=== PATIENT | male | born 1960 | race Caucasian/White ===

== ENCOUNTER 2017-06-07 20:30 | Emergency (ER) | payer OTHER ==
[~2017-06-07] VITALS: Ht 170.2 cm; Wt 79.0 kg
[2017-06-07 20:39] VITALS: Ht 170.2 cm; Wt 79.0 kg
[2017-06-07] MEDS ORDERED: DIPHTH/TET/ACEL PERTUSS (ADULT) 0.5 ML VIAL IM* ONE (23:00)
[2017-06-07] MEDS ORDERED: LIDOCAINE 1% (MDV) 20 ML INJ SC ONE (23:00)
[2017-06-07] MEDS ORDERED: IBUP-1542 PO (23:17)
[2017-06-07] MEDS ORDERED: CEPH-443 PO (23:17)
--- NOTE | 2017-06-07 23:25 | ERD ---
ER Documentation Chief Complaint Date/Time DATE: 06/07/17 TIME: 23:18 Chief Complaint left knee laceration , hit knee against a fire hydrant HPI This is a 56-year-old male who presents the emergency department today for left knee laceration that occurred earlier today after he had it against a fire hydrant. Denies any previous trauma., Fevers or chills. States he has not taken any medication. ROS All systems reviewed and are negative except as per history of present illness. Medications Home Meds Active Scripts Ibuprofen* (Motrin*) 600 Mg Tab, 600 MG PO Q6, #30 TAB Prov:TOM NEFF PA-C 06/07/17 Cephalexin* (Keflex*) 500 Mg Capsule, 500 MG PO QID for 7 Days, CAP Prov:TOM NEFF PA-C 06/07/17 Allergies Allergies: Coded Allergies: risperidone (Verified Allergy, Unknown, MAKES EYES SWOLLEN, OPEN ALL THE TIME, 01/11/15) PMhx/Soc History of Surgery: Yes (Ear Surgery) Anesthesia Reaction: No Hx Neurological Disorder: No Hx Respiratory Disorders: No Hx Cardiac Disorders: No Hx Psychiatric Problems: Yes (Paranoid Schizophrenia,OD) Hx Miscellaneous Medical Probl: No Hx Alcohol Use: Yes (Formerly) Hx Substance Use: Yes (Marijuana card [place]) Hx Tobacco Use: Yes (3 sticks/day) Smoking Status: Current every day smoker Physical Exam Vitals Vital Signs Date Time Temp Pulse Resp B/P Pulse Ox O2 Delivery O2 Flow Rate FiO2 06/07/17 20:39 98.2 68 20 113/72 97 Physical Exam Const: NAD Head: Atraumatic Eyes: Normal Conjunctiva ENT: Normal External Ears, Nose and Mouth. Neck: Full range of motion..~ No meningismus. Resp: Clear to auscultation bilaterally Cardio: Regular rate and rhythm, no murmurs Abd: Soft, non tender, non distended. Normal bowel sounds Skin: 2.5 cm laceration of knee lateral to tibial tubercle. Bleeding well Controlled. No erythema or warmth. Back: No midline or flank tenderness Ext: No cyanosis, or edema Neur: Awake and alert Psych: Normal Mood and Affect Results 24 hrs Current Medications Medications (Trade) Dose Ordered Sig/Jana Route PRN Reason Start Time Stop Time Status Last Admin Dose Admin Diphtheria/ Tetanus/Acell Pertussis (Adacel) 0.5 ml ONCE ONCE IM* 06/07/17 23:00 10 23:01 DC 06/07/17 23:02 Lidocaine (Xylocaine 1% (Mdv) 20 ml) 20 ml ONCE ONCE SC 06/07/17 23:00 06/07/17 23:01 DC Procedures/MDM This is a 56-year-old male who presents the emergency department today for a laceration that he sustained on his left knee earlier today when he hit it against our hydrant. Patient is afebrile and otherwise appearing. He really has no pain in the joint I do not feel he requires imaging at this time as I have low suspicion for acute fracture or dislocation. He did have a 2.5 cm laceration and given the area that it was in where his knee bends I did feel was beneficial to apply sutures. I explained the risks and benefits of the procedure and the patient agreed to proceed. The area was cleaned in the usual sterile fashion. Patient tolerated the procedure well and there were no complications. Laceration Repair by me: Anesthesia: 1% lidocaine locally 1.5 cc Location: left knee Tendon/Joint/Nerves: No injury Foreign body: None detected after copious irrigation and exploration Technique: 3 Simple Interrupted Sutures using 4- nylon Complexity: No subcutaneous sutures/mucosal repair/ edge excision Post Closure Length: 2.5 cm Patient's bleeding was easily controlled in the department and there is no indication of anemia. No evidence of compartment syndrome, neurologic injury, vascular injury, open joint, tendon laceration, or foreign body. Patient is appropriate for outpatient follow up. Tetanus was updated here in the emergency department. He was given a prescription for Motrin and Keflex for home. He was instructed return in 48 hours for a wound check and again in 7-10 days for suture removal. Patient understood and agreed with the plan. At this time the patient is stable for discharge and outpatient management. Patient should follow up with their PCP in the next 1-2 days. They may return to the emergency department sooner for any persistent or worsening of symptoms. Patient understood and agreed with the plan. Departure Diagnosis: Primary Impression: Laceration Condition: Fair Patient Instructions: Laceration, All Referrals: your PCP Additional Instructions: Call your primary care doctor TOMORROW for an appointment during the next 1-2 days.See the doctor sooner or return here if your condition worsens before your appointment time. Take Antibiotics as prescribed. Take Tylenol or Motrin for pain. Keep wound clean and dry. Wound check in 48 hours and suture removal in 7-10 days TOM NEFF PA-C Jun 07, 2017 23:25
[2017-06-08 00:15] VITALS: BP 117/79; PULSE 79; RESP 18
== END 2017-06-08 00:18 | disposition home or self-care (01) ==
LOC: FTE 20:30
DX: S81.012A Laceration without foreign body, left knee, initial encounter (principal); F17.210 Nicotine dependence, cigarettes, uncomplicated; W22.8XXA Striking against or struck by other objects, initial encounter; Y92.9 Unspecified place or not applicable; Z23 Encounter for immunization
CPT/HCPCS: 12001; 90471; 90715; Z7502; Z7610